=== PATIENT | male | born 1975 | race Caucasian/White ===

== ENCOUNTER 2018-05-26 10:26 | Inpatient (IN) | payer OTHER ==
[2018-05-26] VITALS (11 sets, daily range): BP systolic 96–147; BP diastolic 68–126
[~2018-05-26] VITALS: Ht 185.4 cm; Wt 159.7 kg
[2018-05-26 10:47] LABS: HEMATOCRIT 45.5 % (42.0-52.0); HEMOGLOBIN 14.7 gm/dL (14.0-18.0); MCH 28.9 pg (26.0-34.0); MCHC 32.3 g/dL (28.0-37.0); MCV 89.7 fL (80.0-100.0); MPV 9.4 fl. (7.2-11.1); NUCLEATED RBCS 0 /100WBC; PLATELET COUNT* 287 thou/uL (150-400); RBC 5.07 mil/uL (4.50-6.00); RDW-CV 13.8 % (10.5-14.5); WBC 12.8 thou/uL (4.0-11.0)
[2018-05-26 10:58] LABS: CALCIUM 7.9 mg/dL (8.5-10.1); CREATININE 1.3 mg/dL (0.6-1.3); POTASSIUM 4.4 mmol/L (3.5-5.1)
[2018-05-26 11:08] LABS: APTT 26.4 Seconds (25.0-31.3); INR 1.3; PROTIME 13.3 Seconds (9.20-11.50)
[2018-05-26 11:16] LABS: ALBUMIN 2.9 g/dL (3.4-5.0); CK-MB MASS 3.6 ng/mL (<0.5-3.6); MAGNESIUM 2.3 mg/dL (1.8-2.4); TOTAL BILIRUBIN 2.3 mg/dL (<0.1-1.0); TOTAL PROTEIN 6.5 g/dL (6.4-8.2)
[2018-05-26 11:17] LABS: TROPONIN-I LEVEL 1.4 ng/mL (<0.06)
[2018-05-26 11:20] LABS: ABSOLUTE LYMPHOCYTES 1.7 thou/uL (0.8-5.3); ABSOLUTE MONOCYTES 0.4 thou/uL (0.0-1.2); ABSOLUTE NEUTROPHILS 10.8 thou/uL (1.6-8.1); PLATELET ESTIMATE ADEQUATE
--- NOTE | 2018-05-26 11:41 | NUR ---
PT BECAME DIAPHORETIC, HYPOTENSIVE AT 60/37 AFTER SECOND BOLUS OF CARDIZEM PROVIDER NOTIFIED, LITER OF FLUID HUNG WITH PRESSURE BAG. PT LYING FLAT WITH FLUIDS INFUSING
--- NOTE | 2018-05-26 14:03 | NUR ---
RECEIVED PT FROM ER NURSE AT 1300.ASSESSMENT CHARTED. AFEBRILE. AFIB ON MONITOR. PT DENIES CHEST PAIN. MEDS GIVEN. WILL CONTINUE TO MONITOR.
--- NOTE | 2018-05-26 18:01 | EKG ---
[place] [address] ELECTROCARDIOGRAM REPORT Name: JIMI VAZQUEZ Room: [address] IN .R.#: [id number] Admission: 05/26/18 Attend Phys: Yvonne Dinh MD Discharge: Date of : 71 Report #: [id number] THIS REPORT FOR: //name// [facility] ED Test Date: 2018-05-26 Test Time: 10:29:17 Pat Name: JIMI VAZQUEZ Department: Room: [facility] Gender: M Orthotist: : 1975 Requested By: Zen Boothe Order Number: [id number] MD: Wero Ortiz Measurements Intervals [place] Rate: 199 P: IA: QRS: 236 QRSD: 101 T: 88 QT: 262 QTc: 477 Interpretive Statements Atrial fibrillation with rapid V-rate Markedly posterior QRS axis Borderline low voltage, extremity leads septal infarct, old Nonspecific T abnormalities, lateral leads No previous ECG available for comparison Electronically Signed On 05-26-2018 18:01:07 CDT by Wero Ortiz [email or web address] <ELECTRONICALLY SIGNED> By: Wero Ortiz MD, [facility] 05/26/18 1801 1029 1029 Wero Ortiz MD, [facility] /EPI
[2018-05-27] VITALS (33 sets, daily range): BP systolic 87–164; BP diastolic 46–146
--- NOTE | 2018-05-27 00:39 | NUR ---
PT REPORTED HAVING NAUSEA AT 2230. DR WILKINS NOTIFIED, RECIEVED ORDER FOR PRN ZOFRAN. PT REQUESTED ANXIETY MEDICINE. RECIEVED ORDER FOR ATIVAN 1 MG IV. PT SLEEPING SOUNDLY AT 0030. PT HAVING APNIC EPISODES WITH O2 SATS 70-90%. PT PLACED ON 50% VENTI MASK WITH NO IMPROVEMENT. DR WILKINS ORDERED CPAP TO KEEP SAT > 94%. RT IN ROOM AT THIS TIME PLACING CPAP ON PT.
[2018-05-27 04:51] LABS: SGOT 114 U/L (15-37); SGPT 169 U/L (30-65)
--- NOTE | 2018-05-27 06:13 | NUR ---
PT IN AFIB THROUGHOUT SHIFT. PT CONTINUED ON CARDIZEM DRIP, STARTED XARELTO AND BETAPACE. HEART RATE CONTROLLED THIS AM. PT UNABLE TO MAINTAIN OS SAT > 90% WITHOUT USE OF BIPAP. PT STARTED WITH NASAL CANULA THEN PUT ON VENTI MASK AFTER GOING TO SLEEP. PT CONTINUED TO EXTREME EPISODES OF APNEA WITH O2 SATS 60-70%. PT THEN PLACED ON CPAP AT 10 CM. REPIRATORY THERAPIST ADVANCED PT TO BIPAP. O2 SATS > 90% WHILE PT ON BIPAP.
[2018-05-27 09:54] LABS: CALCIUM 7.7 mg/dL (8.5-10.1); CREATININE 1.2 mg/dL (0.6-1.3); MAGNESIUM 2.2 mg/dL (1.8-2.4); POTASSIUM 4.8 mmol/L (3.5-5.1)
--- NOTE | 2018-05-27 13:04 | EKG ---
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: : 1975 Requested By: Juan Hollins Order Number: [id number] [place] MD: Juan Hollins Measurements Intervals [place] Rate: 100 P: CT: QRS: 206 QRSD: 110 T: 174 QT: 357 QTc: 461 Interpretive Statements Atrial fibrillation Right axis deviation Low voltage, extremity leads Abnormal R-wave progression, late transition Abnormal T, consider ischemia, lateral leads Baseline wander in lead(s) II,III,aVR,aVF,V2,V3,V4,V6 Compared to ECG 05/26/2018 10:29:17 Right-axis deviation now present Possible ischemia now present Posterior QRS axis no longer present Myocardial infarct finding no longer present T-wave abnormality still present Electronically Signed On 05-27-2018 13:04:23 CDT by Juan Hollins [email or web address] <ELECTRONICALLY SIGNED> By: Juan Hollins MD, [facility] 05/27/18 1304 1245 1245 Juan Hollins MD, [facility] /EPI
--- NOTE | 2018-05-27 13:04 | EKG ---
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: : 1975 Requested By: Wero Ortiz Order Number: [id number] [place] MD: Juan Hollins Measurements Intervals [place] Rate: 104 P: [place]: QRS: 225 QRSD: 112 T: 171 QT: 386 QTc: 508 Interpretive Statements Atrial fibrillation Borderline intraventricular conduction delay Borderline low voltage, extremity leads Abnormal R-wave progression, late transition Abnormal T, consider ischemia, lateral leads Prolonged QT interval Compared to ECG 05/26/2018 10:29:17 Possible ischemia now present Prolonged QT interval now present Posterior QRS axis no longer present Myocardial infarct finding no longer present T-wave abnormality still present Electronically Signed On 05-27-2018 13:03:59 CDT by Juan Hollins [email or web address] <ELECTRONICALLY SIGNED> By: Juan Hollins MD, [facility] 05/27/18 1303 0753 0753 Juan Hollins MD, [facility] /EPI
--- NOTE | 2018-05-27 15:30 | NUR ---
PT SLEEPING SOUNDLY. SPOKE BRIEFLY WITH MOTHER AT BEDSIDE. SHE SAID SHE DOESN'T KNOW IF PT HAS A PCP OR NOT, SHE SAID THE DR HE USED TO SEE ISN'T HERE ANYMORE AND SHE DOESN'T KNOW IF HE HAS A NEW DR OR NOT. CASE MGT WILL ASSESS AT LATER TIME.
--- NOTE | 2018-05-27 17:17 | TEE ---
[place] [address] TRANSESOPHAGEAL ECHOCARDIOGRAM Name: JIMI VAZQUEZ Room: [address] IN [facility]#: [id number] Admission: 05/26/18 Attend Phys: Yvonne Dinh, Discharge: Date of : 71 Date of Service: 05/27/18 1717 Report #: [id number] THIS REPORT FOR: //name// APPROVED REPORT Study performed: 05/27/2018 10:58:27 EXAM: Transesophageal Echocardiogram Patient Location: In-Patient Room #: [facility] Status: routine BSA: 2.76 HR: 109 bpm BP: 104/43 mmHg Rhythm: Atrial Fibrillation Other Information Study Quality: Good Indications Atrial Fibrillation Echo Enhancing Agent Indication: Rule out Shunt Agent(s) / Amount(s) Used: Agitated Saline 10 cc Procedure After obtaining informed consent, patient underwent transesophageal echo in the [employer]. Type of Sedation : General Anesthesia Sedation was administered by Anesthesiologist. Sedation start time: 1110 Case end Time: 1125 Sedation was achieved intravenously with: Versed (1) Propofol (120) Transesophageal probe was inserted and advanced into esophagus without difficulty by Juan Hollins MD, FACC. Echo enhancement indication: R/O Septal defect. Echo enhancement agent administered: Agitated Saline The ADY was performed without complications. Synchronized Cardioversion acheived with 250 Joules after 1 attempt(s). Rhythm following Synchronized Cardioversion: Normal Sinus Rhythm Throughout the procedure, the blood pressure, pulse oximetry, cardiac rhythm, and rate were monitored. The patient tolerated the procedure without adverse [place] [address] TRANSESOPHAGEAL ECHOCARDIOGRAM Name: GEORGEJIMI W Room: [address] IN [facility]#: [id number] Admission: 05/26/18 Attend Phys: Yvonne Dinh, Discharge: Date of : 71 Date of Service: 05/27/18 1717 Report #: [id number] from conscious sedation was uneventful and vital signs were stable. Left Ventricle Left ventricle is dilated. There is global hypokinesis of the left ventricle. There is normal left ventricular wall thickness. Left ventricular systolic function is severely decreased. No left ventricle thrombus noted on this study. LVEF is 20%.Global hypokinesis. Right Ventricle Right ventricle is dilated. The right ventricular systolic function is normal. Atria No thrombus is visualized in the left atrium or appendage. Left atrium is dilated. Interatrial septum is intact without evidence of ASD or PFO. Right atrium is dilated. Aortic Valve The aortic valve is normal in structure. No aortic regurgitation is present. There is no aortic valvular stenosis. Mitral Valve The mitral valve is normal in structure. Mild mitral regurgitation. No evidence of mitral valve stenosis. Tricuspid Valve The tricuspid valve is normal in structure. Mild tricuspid regurgitation. Pulmonic Valve The pulmonary valve is normal in structure. There is no pulmonic valvular regurgitation. Great Vessels The aortic root is normal in size. Pericardium There is no pericardial effusion. <Conclusion> LVEF is 20%.Global hypokinesis. Left ventricle is dilated. Right ventricle is dilated. Right atrium [place] [address] TRANSESOPHAGEAL ECHOCARDIOGRAM Name: JIMI VAZQUEZ Room: [address] IN [facility].#: [id number] Admission: 05/26/18 Attend Phys: Yvonne Dinh, Discharge: Date of : 71 Date of Service: 05/27/181716 Report #: [id number] No thrombus is visualized in the left atrium or appendage. Left atrium is dilated. Interatrial septum is intact without evidence of ASD or PFO. No aortic regurgitation is present. There is no aortic valvular stenosis. Mild mitral regurgitation. <ELECTRONICALLY SIGNED> By: Juan Hollins MD, [facility] 05/27/181716 16 16 Juan Hollins MD, FACC /INF
--- NOTE | 2018-05-27 18:20 | NUR ---
PT ASSESSMENT CHARTED. VSS THROUGHOUT THE DAY. PT LEFT FOR ADY/CARDIOVERSION AT 1035 IN CONTROLLED AFIB. PT BACK TO ROOM AT 1220 IN NSR. PT BACK INTO AFIB WITH CONTROLLED RATE AT APPROX 1226. EKG OBTAINED AND DR. JOHNSON WAS NOTIFIED. CARDIZEM DRIP RESTARTED AND AM MEDS GIVEN. PT COMPLAINED OF ON AGAIN OFF AGAIN ANXIETY. NEW ORDERS RECEIVED FOR PRN ATIVAN.
[2018-05-28] VITALS (8 sets, daily range): BP systolic 91–140; BP diastolic 62–94
--- NOTE | 2018-05-28 03:49 | NUR ---
PT TO BE TRANSFERED TO TELEMETRY FLOOR AT THIS TIME. REPORT GIVEN TO MJ GONZALEZ.
[2018-05-28 05:11] LABS: HEMATOCRIT 42.4 % (42.0-52.0); HEMOGLOBIN 13.5 gm/dL (14.0-18.0); MCH 29.4 pg (26.0-34.0); MCHC 31.9 g/dL (28.0-37.0); MCV 92.2 fL (80.0-100.0); MPV 10.1 fl. (7.2-11.1); RBC 4.6 mil/uL (4.50-6.00); RDW-CV 14.2 % (10.5-14.5); WBC 10.3 thou/uL (4.0-11.0)
[2018-05-28 05:46] LABS: ALBUMIN 2.6 g/dL (3.4-5.0); CALCIUM 7.6 mg/dL (8.5-10.1); CREATININE 1.2 mg/dL (0.6-1.3); POTASSIUM 5.3 mmol/L (3.5-5.1); TOTAL BILIRUBIN 1.7 mg/dL (<0.1-1.0); TOTAL PROTEIN 5.3 g/dL (6.4-8.2)
--- NOTE | 2018-05-28 06:53 | NUR ---
PT TRANSFERRED FROM ICU BED 002 TO ROOM 219 DURING THIS SHIFT; VSS, A+OX4, BIPAP, CARDIZEM GTT RUNNING. PT IS ABLE TO COMMUNICATE HIS NEEDS TO STAFF EFFECTIVELY. CURRENT PAIN MEDICATION REGIMEN HAS BEEN ADEQUATE FOR CONTROLLING HIS PAIN UP TO THIS TIME. POSSIBLE DISCHARGE IN A DAY OR TWO.
[2018-05-28 10:09] LABS: HEPATITIS B SURFACE AG Negative (Negative)
--- NOTE | 2018-05-28 11:23 | NUR ---
Pt is A&O. Resides at home alone. Independent with ADLs, continues to work FT outside of the home. No DME. No hx of HH or SNF. Consult received regarding Pt needing a bipap at dc. Discussed with and Dhara from [facility]. Pt will either need a sleep study or a chronic respiratory dx. SHANTEL contacted Dhara again regarding renting a bipap until a sleep study can be completed, awaiting decision, Pt in agreement with renting if it is an option. SHANTEL faxed referral info to [facility]. Pt established care at [facility] on 05/26 with Cullen Vargas NP and plans to continue receiving his care there after dc. Following.
--- NOTE | 2018-05-28 13:08 | NUR ---
ASSUMED CARE OF PATIENT THIS AM AT 0730. PATIENT IS ALERT AND ORIENTED X 4. HE DENIES PAIN THIS AM. PATIENT HAS BEEN UP TO THE BATHROOM WITH STANDBY ASSIST. DR IN TO ROUND AND ORDERS WRITTEN. IV CARDIZEM WAS INFUSING THIS AM AT 10 ML /HR TELE SHOWS AFIB WITH A RATE OF 70S TO 80S. PATIENT TO START PO CARDIZEM THIS AFTERNOON. PATIENT EDUCATED ON FLUID RESTRICTIONS AND MONITORING I AND O.
[2018-05-29] VITALS: BP 90/55
[2018-05-29 02:34] LABS: BE 0.6 mmol/L (-2 to +3); HCO3 24.1 mmol/L (22.0-26.0); PCO2 35.5 mmHg (35.0-45.0); PO2 92.1 mmHg (75.0-100.0)
[2018-05-29 04:00] VITALS: BP 88/58
--- NOTE | 2018-05-29 04:23 | NUR ---
END SHIFT: PT RESTED WELL. NO COMPLAINTS. NO PAIN. CONT O2 SAT MONITOR ON OVER SHIFT. PT REQUIRED O2 WITH SATS IN LOW 80'S. ABG'S DRAWN PER ORDERS. PT HAS BEEN A BIT HYPOTENSIVE OVER SHIFT. AFIB RATE CONTROLLED. PT SHOWERED LAST NIGHT WITHOUT DIFFICULTY. AWAITING THORACENTESIS TODAY. ASSESSMENT UNCHANGED. CALL LIGHT IN REACH. PERFORMED HOURLY ROUNDING. WILL CONT TO MONITOR.
[2018-05-29 04:50] LABS: HEMATOCRIT 39.9 % (42.0-52.0); MCH 29.5 pg (26.0-34.0); MCHC 32.5 g/dL (28.0-37.0); MCV 90.9 fL (80.0-100.0); MPV 9.7 fl. (7.2-11.1); RBC 4.4 mil/uL (4.50-6.00); RDW-CV 14.2 % (10.5-14.5); WBC 9.6 thou/uL (4.0-11.0)
[2018-05-29 05:12] LABS: CALCIUM 7.8 mg/dL (8.5-10.1)
[2018-05-29 05:17] LABS: POTASSIUM 3.8 mmol/L (3.5-5.1)
[2018-05-29 08:15] VITALS: BP 95/75
--- NOTE | 2018-05-29 08:15 | NUR ---
ASSUMED PT. CARE AND RECEIVED REPORT AT 0730. PT A/OX4, BP 95/75 ALL OTHER VSS. MONITOR ON TRACING AFIB. PT. DENIES CURRENT PAIN/SOB. ON RA @ 93%. FULL ASSESSMENT COMPLETED, REFER TO CHARTING. PT. NPO FOR THORACENTISIS TODAY. PT. REQUESTING STOOL SOFTNER, WILL ASK DR. STEPHENSON WHEN ON UNIT. PT. UP TO CHAIR. CALL LIGHT IN REACH, WILL CONTINUE WITH PLAN OF CARE.
[2018-05-29 09:05] LABS: BE 2.3 mmol/L (-2 to +3); HCO3 24.9 mmol/L (22.0-26.0); PO2 75.9 mmHg (75.0-100.0); pH 7.496 (7.340-7.450)
--- NOTE | 2018-05-29 11:35 | CON ---
[address] [address] CONSULTATION Name: GEORGEJIMI W Room: [address] IN M.R.#: [id number] Admission: 05/26/18 Attend Phys: Yvonne Dinh MD Discharge: Date of : 71 Report #: [id number] THIS REPORT FOR: //name// CC: [facility] physician/PCP Yvonne Dinh REFERRING PHYSICIAN: Yvonne Dinh MD CHIEF COMPLAINT: Dyspnea. HISTORY OF PRESENT ILLNESS: The patient is a 43-year-old male who is a lifelong nonsmoker with no history of respiratory disorder. The patient presented to the hospital after being seen by his new primary physician. He had saturations that were low and his heart rate was extremely high on an oximetry study according to the patient. The patient states he has been having episodes of what he thinks may be panic attacks. In addition, he has had poor quality sleep. He describes symptoms are really associated more with sleep apnea. He has had somnolence during the day, poor sleeping habits at night. States that he falls asleep and wakes up. He has not been able to get a good 4-8 hour sleep night. According to the patient, he has been extremely active. 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 He has not had any nausea or vomiting. He has had swelling of his lower extremities. He denies hematuria or dysuria. He has not had any bowel conditions. He has had a minimal amount of shortness of breath here more recently than in the past. The patient presents to the hospital in atrial fibrillation, congestive failure. He did undergo direct current cardioversion for his atrial fibrillation. He has been seen by the Cardiology Service. PAST MEDICAL HISTORY: Significant for atrial fibrillation, anxiety disorder. SOCIAL HISTORY: He is . He lives by himself. He is employed. He is a lifelong nonsmoker. No history of drug abuse. ALLERGIES: None known. MEDICATIONS: Diltiazem, Lasix, BiPAP therapy, Xarelto, lorazepam p.r.n. FAMILY HISTORY: Negative for any sort of heart or cardiac disease. During the course of this hospitalization, reviewing records, he did undergo cardioversion as outlined above. He has [place] [address] CONSULTATION Name: GEORGEJIMI W Room: [address]#: [id number] Admission: 05/26/18 Attend Phys: Yvonne Dinh MD Discharge: Date of : 71 Report #: [id number] compromise of ventricular function with an EF in the 20% range. The left ventricle was dilated. There is global hypokinesis and the left ventricular ejection fraction was 20%. PHYSICAL EXAMINATION: VITAL SIGNS: Blood pressure 140/62, respiratory rate 18, nonlabored; pulse rate 69 and irregular, temperature 98 degrees. Weight 352 pounds. GENERAL APPEARANCE: Awake, alert, oriented. HEAD: Atraumatic. EYES: Pupils are round, equal, reactive. ORAL CAVITY: Moist. No lesions. Good dentition. NECK: No adenopathy. CHEST: Reveals diminished breath sounds on the right compared to the left. Dullness to percussion as well on the right. CARDIOVASCULAR: Irregular rhythm, distant heart tones. ABDOMEN: Obese. EXTREMITIES: With 2+ edema bilaterally, no calf tenderness. SKIN: Warm and dry without rash. LYMPHATICS: Negative. NEUROLOGIC: Moves all 4 extremities. Strength equal bilaterally. DIAGNOSTIC DATA: Chest x-ray reveals mild effusion and right basilar atelectatic changes. A CTA of the chest performed was negative for any pulmonary emboli. There was a moderate sized right pleural effusion. Venous Dopplers of the lower extremities was negative for thromboembolic disease. Ultrasound of the abdomen revealed a right effusion and the study was unremarkable. LABORATORY DATA: TSH is 2.6, free T4 was 1.56. ProBNP 11,355. Today, his electrolytes, sodium 143, potassium 5.3, chloride 108, CO2 of 30, BUN of 31, creatinine 1.2, EGFR is 65. Hemoglobin and hematocrit are 13.5 and 42.4, white count 10,300. ASSESSMENT: 1. Acute respiratory insufficiency. 2. Sleep apnea. 3. Congestive heart failure with compromised ejection fraction as outlined above. 4. Obesity. 5. History of anxiety. 6. Right pleural effusion. RECOMMENDATION: The patient will need a sleep study as an outpatient. In the meantime, continue with BiPAP therapy at night here and with naps. We will ask case management to assist in achieving a noninvasive positive [address] [place] [address] CONSULTATION Name: JIMI VAZQUEZ Room: [address] IN ..#: [id number] Admission: 05/26/18 Attend Phys: Yvonne Dinh MD Discharge: Date of : 71 Report #: [id number] pressure device to be utilized at home. Arterial blood gases will be obtained. Continue with diuresis. We will go ahead and proceed with orders for an ultrasound-guided thoracentesis. <ELECTRONICALLY SIGNED> By: Miki Brunner MD 05/29/18 1135 1327 [id number] Brunner MD /nt
--- NOTE | 2018-05-29 11:36 | NUR ---
Anticipate dc tomorrow. Dhara Zarate to provide loaner bipap. CM to work on scheduling outpt sleep study today for as soon as possible after dc. Dr Brunner wrote sleep study order. Following.
[2018-05-29 12:04] VITALS: BP 105/62
[2018-05-29 13:03] VITALS: BP 105/62
--- NOTE | 2018-05-29 13:05 | NUR ---
Sleep study scheduled for 06/11/[address] [facility]. Pt will need to check in at 8pm through the Emergency Room. Pt is to not have any alcohol or caffiene the day of the sleep study after 3pm. Updated dated DC summary with info on sleep study. Updated Dhara at [employer], regarding delivering the loaner. Dhara to fax prescription, CM to have it signed by pullata and fax back.
[2018-05-29 16:00] VITALS: BP 108/50
--- NOTE | 2018-05-29 19:33 | NUR ---
PT. STABLE THROUGH OUT SHIFT. PROGRESING TOWARDS GOALS TODAY, AMBULATED HALLS AND UP TO CHAIR MOST OF THE DAY. C/O OF SLIGHT PAIN POST THORACENTISIS, CONTROLLED WELL WITH TYLENOL. ANTICIPATE DC TOMORROW. PT. HAS REMAINED ON RA THIS SHIFT, WITH NO SOA. HOURLY ROUNDING COMPLETED THROUGH OUT THE DAY FOR PT. SAFETY.
--- NOTE | 2018-05-29 23:15 | NUR ---
ASSUMED CARE OF PT AT 1900. PT IS ALERT AND ORIENTED. VSS. PEROCHOA. PT IS UP AD [place]. PT IS IN A FIB ON THE TELEMETRY. PT IS RESTING COMFORTABLY IN BED. RESPIRATIONS ARE EVEN AND NONLABORED. WILL CONTINUE TO MONITOR PT.
[2018-05-30] VITALS: BP 94/54
[2018-05-30 04:00] VITALS: BP 101/58
[2018-05-30 07:31] LABS: HEMATOCRIT 41.9 % (42.0-52.0); HEMOGLOBIN 13.8 gm/dL (14.0-18.0); MCH 29.6 pg (26.0-34.0); MCHC 33.1 g/dL (28.0-37.0); MCV 89.5 fL (80.0-100.0); MPV 9.1 fl. (7.2-11.1); RBC 4.68 mil/uL (4.50-6.00); RDW-CV 14.3 % (10.5-14.5); WBC 10.4 thou/uL (4.0-11.0)
[2018-05-30 07:43] LABS: ALBUMIN 2.5 g/dL (3.4-5.0); CALCIUM 7.6 mg/dL (8.5-10.1); POTASSIUM 3.9 mmol/L (3.5-5.1); TOTAL BILIRUBIN 1.9 mg/dL (<0.1-1.0); TOTAL PROTEIN 5.9 g/dL (6.4-8.2)
--- NOTE | 2018-05-30 08:12 | CON ---
[address] [address] CONSULTATION Name: JIMI VAZQUEZ Room: [address] IN .R.#: [id number] Admission: 05/26/18 Attend Phys: Yvonne Dinh MD Discharge: Date of : 71 Report #: [id number] THIS REPORT FOR: //name// CC: [facility] physician/PCP Yvonne Dinh DATE OF SERVICE: 05/26/2018 HISTORY OF PRESENT ILLNESS: The patient a 43-year-old single white male who was admitted after he was noted to be in atrial fibrillation. The history is obtained from the patient. He has never been here to [place] before. He has a long history of anxiety. He has had no previous cardiac evaluation. He is not very active at this time. He is also morbidly obese, standing 6 feet 1 and weighing 255 pounds. He has not seen a physician for years. Recently, he has felt anxious. He went to see a nurse practitioner today and was noted to be in atrial fibrillation. He was sent to the Emergency Room and admitted. He does have occasional chest discomfort. He does get short of breath when he exerts himself. He has noticed some lower extremity edema. He denied any palpitations, syncope. He has had no bleeding problems. PAST MEDICAL HISTORY: Significant for hernia repair, high cholesterol. CURRENT MEDICATIONS: None. ALLERGIES: He has no known drug allergies. FAMILY HISTORY: Negative for heart disease. 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 He lives in [place] by himself. He does not use alcohol. He is not a smoker. Denies illicit drugs. REVIEW OF SYSTEMS: He has had no history of stroke. He does snore at night. No history of peptic ulcer disease, liver disease, kidney disease, cancer, psychiatric illness, chronic skin condition. PHYSICAL EXAMINATION: GENERAL: Revealed a large middle-aged male, lying in bed, appeared in no acute distress. VITAL SIGNS: He had blood pressure of 110/ , pulse is 120, respirations nonlabored. HEENT: He is anicteric. Conjunctivae pink. Mucous members moist. NECK: Veins were difficult to assess due to obesity. CHEST: Clear to auscultation. CARDIOVASCULAR: Irregular tachycardia. ABDOMEN: [place] [address] CONSULTATION Name: GEORGEJIMI W Room: [address]#: [id number] Admission: 05/26/18 Attend Phys: Yvonne Dinh MD Discharge: Date of : 71 Report #: [id number] EXTREMITIES: Had pitting edema. SKIN: Cool and dry. NEUROLOGIC: Nonfocal. LYMPH: No adenopathy. MUSCULOSKELETAL: No joint effusion. PSYCHIATRIC: Mood is appropriate. DIAGNOSTIC DATA: His ECG showed atrial fibrillation with a rapid ventricular response rate, rightward axis, nonspecific ST-segment changes, poor R-wave progression. Workup in the Emergency Room today, he had portable chest x-ray that showed small right effusion, cardiomegaly, no pulmonary edema. There was atelectasis. LABORATORY DATA: Sodium 140, creatinine 1.3, alkaline phosphate 128, SGPT 197, SGOT 121, bilirubin 2.3. Troponin 1.4. BNP 11,355. White blood cell count 12.8, hemoglobin 14.7. IMPRESSION AND RECOMMENDATIONS: 1. Atrial fibrillation, onset unclear. The patient is asymptomatic. Recommend diltiazem for rate control. I would recommend starting sotalol. If the patient fails to convert, he might require cardioversion. 2. Obesity. 3. Snoring at night. I would rule out sleep apnea. 4. Elevated liver function studies. 5. Elevated troponin. No history of angina. I would not recommend stress testing nor cardiac catheterization at this time. 6. History of hyperlipidemia. 7. Anxiety disorder. <ELECTRONICALLY SIGNED> By: Wero Ortiz MD, FACC 05/30/18 0812 1459 1926Wero Ortiz MD, FACC /nt
[2018-05-30 08:45] VITALS: BP 105/60
--- NOTE | 2018-05-30 08:52 | NUR ---
ASSUMED PT. CARE AND RECEIVED REPORT AT 0730. PT A/OX4, VSS, MONITOR ON TRACING AFIB. PT. DENIES CURRENT PAIN/SOB. ON RA @ 97%. EXHIBITS 2+ EDEMA TO LE/FEET. FULL ASSESSMENT COMPLETED, REFER TO CHARTING. PT. STATES HE IS READY TO DC TODAY, FAMILY WILL BE WITH HIM THROUGH THE WEEKEND AT HOME. CALL LIGHT IN REACH, WILL CONTINUE WITH PLAN OF CARE.
[2018-05-30 11:36] VITALS: BP 105/62
[2018-05-30 11:56] VITALS: BP 93/59
[2018-05-30] MEDS ORDERED: LANOXIN 0.25M0.25 M1 PO (12:03)
[2018-05-30] MEDS ORDERED: XARELTO20 MG PO (12:03)
[2018-05-30] MEDS ORDERED: CARDIZEM CD240 MG PO (12:03)
[2018-05-30] MEDS ORDERED: SORINE 80 MG TA80 M1 PO (12:03)
[2018-05-30] MEDS ORDERED: LASIX 40 MG TAB40 M1 PO (12:03)
[2018-05-30] MEDS ORDERED: ATIVAN0.5 MG PO (12:03)
[2018-05-30] MEDS ORDERED: KLOR-CON M2020 MEQ PO (12:03)
[2018-05-30 13:08] LABS: BODY FLUID LDH 332 IU/L (()); BODY FLUID PROTEIN 2.1 g/dL (())
--- NOTE | 2018-05-30 14:14 | NUR ---
SPOKE TO PATIENT TO DISCUSS DISCHARGE PLANNING NEEDS, AND TO INFORM THAT UPON CHECKING THE CO-PAY AMOUNT FOR THE PATIENT'S XERALTO. [facility] PHARMACIST INFORMS THAT THE PATIENT MUST BRING UPDATED INSURANCE CARDS THERE IS NO CURRENT INFO ON FILE, AND WITHOUT UPDATED INSURANCE INFO THE COST OF THE XERALTO IS $515. THALIA CHAPIN ARRIVED AT THE HOSPIAL AND DELIVERED THE PATIENT'S BIPAP. PATIENT TO D/C HOME TODAY. CM WILL REMAIN AVAILABLE TO ASSIST AND FOLLOW NEEDED.
[2018-05-30 16:23] LABS: SOURCE PLEURAL
--- NOTE | 2018-05-30 16:27 | NUR ---
PT SITTING IN RECLINER, SUDDENLY CLOSED EYES AND LEANED TO RIGHT SIDE. PT. STATED HE SUDDENLY FELT LIGHT HEADED. VITAL SIGNS CONSISTANT WITH PREVIOUS REULTS BP 95/70, HEART RATE 110'S AFIB, BLOOD GLUCOSE 133. PT. CONTINUED TO FEEL THE SAME DURING ASSESSMENT AND THEN BECAME DIAPHORETIC. DENIES ALL PAIN. EKG OBTAINED WITH NO CHANGES NOTED. DR. STEPHENSON NOTIFIED OF CHANGE. ORDERS RECEIVED JUST TO MONITOR AND IF PT. SLEEPING MAKE SURE WEARING BIPAP. POSSIBILITY THAT ALL NEW CARDIAC MEDS ARE CATCHING UP TO HIM AND HE IS NOT TOLERATING LOWER BP. PT. WAS ASSISSTED BACK TO BED AND BIPAP PLACED, PT. AGREEABLE TO WEAR. DR. STEPHENSON CALLED BACK TO CHECK ON PT. APPROX. 30 MINUTES LATER. ORDER RECEIVED FOR ABG AND BMP AT THIS TIME. PT. CONTINUE TO BE SLEEPY, AND NOT QUITE HIMSELF. NO LONGER DIAPHORETIC, VSS. WILL CONTINUE TO MONITOR.
[2018-05-30 16:28] LABS: BE 3.3 mmol/L (-2 to +3); HCO3 26.7 mmol/L (22.0-26.0); PCO2 36.8 mmHg (35.0-45.0); pH 7.478 (7.340-7.450)
[2018-05-30 16:32] LABS: PO2 56.8 mmHg (75.0-100.0)
[2018-05-30 16:41] LABS: CALCIUM 7.9 mg/dL (8.5-10.1)
--- NOTE | 2018-05-30 17:08 | PATH ---
[address] [address] PATHOLOGY RPT PROCEDURE Name: JIMI VAZQUEZ Room: [address] IN [facility]#: [id number] Admission: 05/26/18 Date of : 71 Discharge: Report #: [id number] Path Case #: [id number] Note [facility] Accession Number: [id number] TESTS RESULT FLAG UNITS REF RANGE LAB Clinician Provided Cytology Information No. of containers..01 Other (Miscellaneous) Source: 01 R PLEURAL Clinician ICD10: 01 I48.91 DIAGNOSIS: 02 R PLEURAL NEGATIVE FOR MALIGNANT CELLS. REACTIVE MESOTHELIAL CELLS AND INFLAMMATION, PREDOMINANTLY CHRONIC. THIS INTERPRETATION INCLUDES EVALUATION OF A CELL BLOCK. Signed out by: 02 Bart Delacruz MD, Pathologist NPI- [id number] Performed by: Brittny Carlos, Refinery Operator [employer]per [employer] ([facility]) Gross description: 01 31ML, ORANGE, CLOUDY /LCS FLAG LEGEND: L-Low Normal,H-High Normal,LL-Alert Low,HH-Alert High <-Panic Low,>-Panic High,A-Abnormal,AA-Critical Abnormal Performed at: [address] [address] Selvin Espinoza MD, [address] [place] [address] [address] [facility], [place] [address] Bart Delacruz MD, Specimen Comment: A courtesy copy of this report has been sent to Specimen Comment: [phone]. Specimen Comment: Report sent to Performed at: [address] [address], [place], [place] [id number] MD Selvin Espinoza MD Phone: [phone]
--- NOTE | 2018-05-30 19:33 | NUR ---
ABG RESULTS WERE CALLED TO DR. JEFFERS, NO NEW ORDERS AT THIS TIME. FIO2 INCREASED TO 45% BY RT. PT. DOING BETTER THIS EVENING. PLACED ON NASAL CANNULA TO EAT DINNER AND VISIT WITH FAMILY. PT. AND FAMILY EDUCATED ON HEART FAILURE, AFIB, BIPAP. REPORT GIVEN TO NOC RN TO FOLLOW. HOURLY ROUNDING COMPLETED THROUGH OUT THE DAY FOR PT. SAFETY.
--- NOTE | 2018-05-30 23:25 | NUR ---
ASSUMED CARE OF PT AT 1900. PT IS ALERT AND ORIENTED. VSS. PERRLA. NO COMPLAINTS OF PAIN. NO COMPLAINTS OF WEAKNESS OR DIZZINESS. BIPAP PLACED ON PT AT 0. PT IS A FIB ON THE TELEMETRY. PT IS RESTING COMFORTABLY IN BED. RESPIRATIONS ARE EVEN AND NONLABORED. WILL CONTINUE TO MONITOR PT.
[2018-05-31] VITALS: BP 125/68
[2018-05-31 04:30] VITALS: BP 117/73
[2018-05-31 08:00] VITALS: BP 129/82
[2018-05-31 12:00] VITALS: BP 126/66
--- NOTE | 2018-05-31 12:47 | EKG ---
[place] [address] ELECTROCARDIOGRAM REPORT Name: JIMI VAZQUEZ Room: [address] ADM IN M.R.#: [id number] Admission: 05/26/18 Attend Phys: Yvonne Dinh MD Discharge: Date of : 71 Report #: [id number] THIS REPORT FOR: //name// [facility] Test Date: 2018-05-30 Test Time: 15:03:08 Pat Name: JIMI VAZQUEZ Department: Room: [address] Gender: M Cabin Agent: : 1975 Requested By: Yvonne Dinh Order Number: [id number] Reading MD: Juan Hollins Measurements Intervals [place] Rate: 91 P: [place]: QRS: 211 QRSD: 113 T: 159 QT: 354 QTc: 436 Interpretive Statements Atrial fibrillation Borderline intraventricular conduction delay Borderline low voltage, extremity leads Abnormal R-wave progression, late transition Abnormal T, consider ischemia, lateral leads Baseline wander in lead(s) V2 Compared to ECG 05/27/2018 12:45:36 Right-axis deviation no longer present T-wave abnormality still present Possible ischemia still present Electronically Signed On 05-31-2018 12:46:51 CDT by Juan Hollins [email or web address] <ELECTRONICALLY SIGNED> By: Juan Hollins MD, [facility] 05/31/18 1246 1503 1503 Juan Hollins MD, [facility] /EPI
--- NOTE | 2018-05-31 13:50 | NUR ---
ASSUMED CARE OF PATIENT THIS AM AT 0730. PATIENT IS ALERT AND ORIENTED X 4. HE C/O A BAD HEADACHE THIS AM. DR NOTIFIED AND ORDERS GIVEN FOR PAIN MEDICATION AND SINUS MEDICATION. PATIENT IS UP IN THE ROOM INDEPENDENTLY. NO C/O DIZZINESS. TELE SHOWS CONTINUED A FIB WITH BBB. WILL CONTINUE TO MONITOR.
[2018-05-31 15:30] VITALS: BP 121/71
[2018-05-31 20:58] VITALS: BP 101/63
[2018-06-01 00:38] VITALS: BP 118/84
[2018-06-01 04:21] VITALS: BP 113/65
--- NOTE | 2018-06-01 05:02 | NUR ---
PT IS ABLE TO COMMUNICATE HIS NEEDS TO STAFF EFFECTIVELY. CURRENT PAIN MEDICATION REGIMEN HAS BEEN ADEQUATE FOR CONTROLLING HIS PAIN UP TO THIS TIME. PT WEARING BIPAP FOR THE MAJORITY OF THE TIME HE IS ASLEEP; NEEDS TO BE ENCOURAGED AND REMINDED TO DO SO, HOWEVER. POSSIBLE DISCHARGE LATER TODAY.
[2018-06-01] MEDS ORDERED: DILTIAZEM 24HR180 M1 PO (07:46)
[2018-06-01 08:00] VITALS: BP 106/63
--- NOTE | 2018-06-01 10:37 | NUR ---
ASSUMED CARE OF PATIENT THIS AM AT 0730. PATIENT IS ALERT AND ORIENTED X 4. HE C/O CONTINUED HEADACHE THIS AM. PATIENT CONTINUES AFIB ON THE MONITOR. HEART RATE IS 80S TO 90S. PATIENT IS UP IN THE ROOM. HE DENIES SOA. HE CONTINUES TO HAVE 2 TO 3+ ANKLE AND FOOT EDEMA. PATIENT MEDICATED FOR C/O PAIN X 1. DR STEPHENSON IN TO ROUND THIS AM. PLANS DISCHARGE TODAY.
[2018-06-01 12:01] VITALS: BP 92/73
--- NOTE | 2018-06-14 12:08 | CARD ---
[address] [address] CARDIAC CATH REPORT Name: JIMI VAZQUEZ Room: [address] IN .R.#: [id number] Admission: 05/26/18 Attend Phys: Yvonne Dinh MD Discharge: 06/01/18 Date of : 71 Report #: [id number] THIS REPORT FOR: //name// CC: [facility] physician/PCP Yvonne Dinh DATE OF SERVICE: 05/27/2018 INDICATION: Atrial fibrillation, congestive heart failure. PROCEDURE: This is a transesophageal echocardiogram with DC cardioversion. CONSENT: The risks and benefits of the procedure described to the patient in lay terms. The patient elects to proceed. HISTORY: The patient is a morbidly obese male who presented with respiratory failure and atrial fibrillation with heart rates difficult to manage, even despite aggressive AV daphne acting agents. The patient elects to proceed. We consulted Anesthesia for conscious sedation for this higher risk patient. DESCRIPTION OF PROCEDURE: Please see Anesthesia record for hemodynamic and medication administration. Please see transesophageal echocardiogram for final report. In short, summary, the patient had a significantly reduced LV systolic dysfunction in a global manner with an ejection fraction of 20%. However, there was no intracardiac thrombus and the left atrial appendage was free of thrombus, although there was some spontaneous echo contrast in the left atrial appendage only. The patient was successfully cardioverted while still sedated with 250 joules, biphasic from atrial fibrillation heart rate 120 to sinus rhythm heart rate 75. Post-procedurally, the patient did require an oral airway and monitoring closely by our Anesthesia colleagues, as he does have evidence of sleep apnea. IMPRESSION: 1. Atrial fibrillation. 2. Status post successful ADY-guided direct current cardioversion. <ELECTRONICALLY SIGNED> By: Juan Hollins MD, FACC 06/14/18 1208 1140 1309Juan Hollins MD, FACC /nt
== END 2018-06-01 17:15 | disposition home or self-care (01) | DRG 291 ==
LOC: M.ERS 10:26 → M.ICU 11:55 → M.TBA-ER 11:55 → M.ICU 13:05 → M.TBA 19:08 → M.ICU 19:08 → M.2W 05-28 04:00
PROVIDERS: Emergency Medicine; Internal Medicine Cardiovascular Disease; Internal Medicine Pulmonary Disease; ADMIT Internal Medicine
PROC: B24BZZ4 Ultrasonography of Heart with Aorta, Transesophageal (ICD-10-PCS; principal; 2018-05-27)
PROC: 5A2204Z Restoration of Cardiac Rhythm, Single (ICD-10-PCS; principal; 2018-05-27)
PROC: 5A09357 Assistance with Respiratory Ventilation, Less than 24 Consecutive Hours, Continuous Positive Airway Pressure (ICD-10-PCS; principal; 2018-05-27)
PROC: 5A09357 Assistance with Respiratory Ventilation, Less than 24 Consecutive Hours, Continuous Positive Airway Pressure (ICD-10-PCS; 2018-05-28)
PROC: 0W993ZZ Drainage of Right Pleural Cavity, Percutaneous Approach (ICD-10-PCS; 2018-05-29)
PROC: 5A09357 Assistance with Respiratory Ventilation, Less than 24 Consecutive Hours, Continuous Positive Airway Pressure (ICD-10-PCS; 2018-05-31)
DX: I50.23 Acute on chronic systolic (congestive) heart failure (principal); J96.20 Acute and chronic respiratory failure, unspecified whether with hypoxia or hypercapnia; I42.9 Cardiomyopathy, unspecified; Z68.42 Body mass index [BMI] 45.0-49.9, adult; J90 Pleural effusion, not elsewhere classified; I48.91 Unspecified atrial fibrillation; F41.9 Anxiety disorder, unspecified; E66.9 Obesity, unspecified; E78.5 Hyperlipidemia, unspecified; I95.9 Hypotension, unspecified; Z79.899 Other long term (current) drug therapy

== ENCOUNTER → 2018-06-11 | Outpatient (CLI) | payer OTHER ==
[~2018-06-11] MED LIST: ATIVAN0.5 MG PO; CARDIZEM CD240 MG PO; DILTIAZEM 24HR180 M1 PO; KLOR-CON M2020 MEQ PO; LANOXIN 0.25M0.25 M1 PO; LASIX 40 MG TAB40 M1 PO; SORINE 80 MG TA80 M1 PO; XARELTO20 MG PO
--- NOTE | 2018-06-13 07:28 | SLEEP ---
[address] [address] SLEEP STUDY REPORT Name: JIMI VAZQUEZ Room: [facility]#: [id number] Admission: 06/11/18 Attend Phys: Miki Brunner, Discharge: Date of : 71 Report #: [id number] THIS REPORT FOR: //name// CC: Miki Brunner MD [facility] physician/PCP This study has been reviewed in its entirety by a board certified sleep specialist DATE OF SERVICE: 06/11/2018 ATTENDING PHYSICIAN: Dr. Miki Brunner. The patient is 43 years old who weighs 315 pounds and is 73 inches tall with a BMI of 41. The patient's [place] score was 12. The patient underwent a split night study at [facility]. During the night of study, the patient spent 397 minutes in bed and slept for 315 minutes with a sleep efficiency of 79%. Sleep latency was 18.7 minutes with a REM latency of 32.5 minutes, which was short. Overall, sleep architecture showed normal stage I and stage II sleep, increased N3 sleep and normal REM sleep. During the initial diagnostic portion of the study, the patient slept for 138 minutes. During that time, there were no central, mixed or obstructive apneas. There were 22 hypopneas. The patient's apnea-hypopnea index was 9.6 per hour with a REM index of 30 per hour. The patient's supine index could not be assessed due to lack of supine sleep. EKG monitoring revealed atrial fibrillation. The patient's average heart rate was 65 beats per minute with a maximum of 101 beats per minute. PLMS were not observed. A nocturnal oximetry study revealed an average oxygen saturation of 92% with the lowest of 87%. 38 minutes were spent in oxygen saturation between 80-89%. The patient met the split night criteria for CPAP initiation, was started at 7 cm water and titrated up to 18 cm water. At the final pressure, the patient slept for 48.8 minutes. The patient had REM sleep, but no supine sleep. The patient's AHI was reduced to 4.2 per hour and oxygen saturation remained above 92%. IMPRESSION: 1. Mild sleep apnea-hypopnea syndrome with worsening during REM sleep. Total AHI 9.6 per hour with a REM AHI of 30 [place] [address] SLEEP STUDY REPORT Name: JIMI VAZQUEZ Room: [facility]#: [id number] Admission: 06/11/18 Attend Phys: Miki Brunner, Discharge: Date of : 71 Report #: [id number] 2. Nocturnal hypoxia secondary to obstructive sleep apnea, but resolved with CPAP. 3. Atrial fibrillation. 4. No clinically significant PLMS. RECOMMENDATIONS: 1. CPAP at 18 cm water completely eliminated the patient's sleep apnea and should be used on a nightly basis. 2. Follow up in 4-6 weeks to assess compliance with CPAP and to document clinical improvement. 3. Weight loss is strongly emphasized. 4. Caution regarding driving until symptoms of sleep apnea resolve with the use of CPAP. 5. Avoid CAR DUMPER depressants. <ELECTRONICALLY SIGNED> By: Jose Eduardo Borrero MD 06/13/18 0728 1722 [facility] Hillary Borrero MD /nt
== END ==
LOC: M.SLEEPLAB 19:47
DX: G47.33 Obstructive sleep apnea (adult) (pediatric) (principal); G47.34 Idiopathic sleep related nonobstructive alveolar hypoventilation; I48.91 Unspecified atrial fibrillation

== ENCOUNTER → 2018-10-02 | Outpatient (CLI) | payer OTHER | LOC: M.RAD 16:34 | DX: I50.22 Chronic systolic (congestive) heart failure (principal); J90 Pleural effusion, not elsewhere classified; R91.8 Other nonspecific abnormal finding of lung field ==

== ENCOUNTER → 2018-10-24 | Outpatient (CLI) | payer OTHER ==
[~2018-10-24] VITALS: Ht 185.4 cm; Wt 142.9 kg
[2018-10-24] VITALS (7 sets, daily range): BP systolic 107–130; BP diastolic 60–82
[~2018-10-24] MED LIST changes: +CARVEDILOL12.5 MG PO
[2018-10-24 08:23] LABS: HEMATOCRIT 45.3 % (42.0-52.0); HEMOGLOBIN 15.2 gm/dL (14.0-18.0); MCH 30.6 pg (26.0-34.0); MCHC 33.6 g/dL (28.0-37.0); MCV 91.2 fL (80.0-100.0); RBC 4.97 mil/uL (4.50-6.00); WBC 8.1 thou/uL (4.0-11.0)
[2018-10-24 08:29] LABS: ANION GAP 8 mmol/L (7-16); BUN 15 mg/dL (7-18); CALCIUM 9.6 mg/dL (8.5-10.1); CHLORIDE 107 mmol/L (98-107); CO2 29 mmol/L (21-32); CREATININE 1.1 mg/dL (0.6-1.3); GLUCOSE 120 mg/dL (70-99); SODIUM 144 mmol/L (136-145)
[2018-10-24 08:32] LABS: APTT 30.1 Seconds (25.0-31.3)
[2018-10-24 08:33] LABS: ALBUMIN 3.6 g/dL (3.4-5.0); ALKALINE PHOSPHATASE 92 U/L (46-116); CHOLESTEROL 288 mg/dL (<200); HDL CHOLESTEROL 35 mg/dL (>40); LDL CHOLESTEROL 218 mg/dL (<100); SGOT 14 U/L (15-37); SGPT 27 U/L (30-65); TC:HDL 8.2 Ratio (Not establshd); TOTAL BILIRUBIN 0.7 mg/dL (<0.1-1.0); TOTAL PROTEIN 7.4 g/dL (6.4-8.2); TRIGLYCERIDE 175 mg/dL (<150); VLDL 35 mg/dL (<40)
[2018-10-24 08:35] LABS: SERUM ASSESSMENT Clear
--- NOTE | 2018-10-24 15:01 | CARD ---
[address] [address] CARDIAC CATH REPORT Name: GEORGEJIMI W [id number] Admission: 10/24/18 Attend Phys: Wero Ortiz MD, F Discharge: Date of : 71 Report #: [id number] THIS REPORT FOR: //name// APPROVED REPORT Study performed: 10/24/2018 08:00:38 Patient Details Patient Status: Out-Patient Room #: The patient is a 43 year-old male Event Personnel Wero Ortiz Senior Strategy Manager, Sridevi Garcia RN RN, Christopher Berumen (Saqib) Grazyna Moreno James Monitor Procedures Performed left heart cath Indication Atrial fibrillation, Dyspnea, CardiomyopathyPositive stress test Risk Factors Obesity Admission/Lab Medications/Medications given during procedure Heparin Unfract. Procedure Narrative The patient was brought electively to the Cardiac Catheterization Laboratory and was prepped and draped in a sterile manner. The right wrist was infiltrated with 1% Lidocaine subcutaneous anesthesia. A Slender Glidesheath sheath was inserted into the right radial artery. Coronary angiography was performed using coronary diagnostic catheters. The right coronary system was accessed and visualized with a Diagnostic - JR4 catheter. The left coronary system was accessed and visualized with a Diagnostic - JL4 catheter. The left ventricle was accessed and visualized with a Diagnostic - ANG PIG catheter. Left ventricular/Aortic Valve gradient assessed via catheter pullback. Left ventriculogram was performed in WILLIS projection. Closure device was deployed with a 6 Fr Vasc-Band XLng 29cm. The patient tolerated the procedure well and there were no complications associated with the procedure. There was no hematoma[place] [address] CARDIAC CATH REPORT Name: JIMI VAZQUEZ Room: [facility]#: [id number] Admission: 10/24/18 Attend Phys: Wero Ortiz MD, F Discharge: Date of : 71 Report #: [id number] Sedation start time: 926 Case end Time: 944 Fentanyl 25 mcg Versed 2 mg Fluoro Time: 2.9 minutes Dose: DAP 56887 cGycm2 1161 mGy Contrast Type and Amount: Omnipaque 290 ml Coronary Angiography The patient's coronary anatomy is right dominant. [place] Artery Percent Stenosis Left Main: 0 % Prox LAD: 0 % Mid/Distal LAD: 30 % Circumflex: 0 % RCA: 30 % Ramus: 40 % Diagnostic Cath Diagonal 1 40% proximal stenosis noted Left Ventriculography The left ventricle is mild to moderately dilated in size with decreased contractility. The left ventricular ejection fraction is estimated to be 25-30%. There is no mitral insufficiency. Hemodynamics The aortic pressure is 107/74 mmHg with a mean of 86 mmHg. The left ventricular pressure is 114/20 mmHg with a mean of mmHg. The left ventricular end diastolic pressure is 25 mmHg. There was no gradient across the aortic valve upon pullback. Pullback from the left ventricle to the aorta revealed no gradient across the aortic valve. Conclusion 1. nonischemic cardiomyopathy Recommendations consider ICD implantation <ELECTRONICALLY SIGNED> By: Wero Ortiz MD, FACC 10/24/18 1500 1500 1500Daviyahir Ortiz MD, FACC /INF
--- NOTE | 2018-10-24 16:29 | EKG ---
[place] [address] ELECTROCARDIOGRAM REPORT Name: JIMI VAZQUEZ Room: [facility]#: [id number] Admission: 10/24/18 Attend Phys: Wero Ortiz MD, F Discharge: Date of : 71 Report #: [id number] THIS REPORT FOR: //name// [facility] Test Date: 2018-10-24 Test Time: 08:58:46 Pat Name: JIMI VAZQUEZ Department: Room: Gender: M Shoulder Puncher: : 1975 Requested By: Wero Ortiz Order Number: [id number] Eric MD: Wero Ortiz Measurements Intervals [place] Rate: 100 P: [place]: QRS: -77 QRSD: 112 T: 148 QT: 299 QTc: 386 Interpretive Statements Atrial fibrillation Borderline IVCD with LAD Abnormal R-wave progression, late transition Inferior infarct, old Lateral leads are also involved Baseline wander in lead(s) V1,V2 Compared to ECG 05/30/2018 15:03:08 no change Electronically Signed On 10-24-2018 16:29:11 LABOR ECONOMIST by Wero Ortzi [email or web address] <ELECTRONICALLY SIGNED> By: Wero Ortiz MD, [facility] 10/24/18 1629 0858 0858 Wero Ortiz MD, [facility] /EPI
== END | disposition home or self-care (01) ==
LOC: M.CL 07:32
PROVIDERS: Internal Medicine Cardiovascular Disease
DX: I48.1 Persistent atrial fibrillation (principal); I42.9 Cardiomyopathy, unspecified; R94.39 Abnormal result of other cardiovascular function study; I25.5 Ischemic cardiomyopathy; G47.30 Sleep apnea, unspecified; F41.9 Anxiety disorder, unspecified; E78.5 Hyperlipidemia, unspecified; I50.22 Chronic systolic (congestive) heart failure; E66.01 Morbid (severe) obesity due to excess calories; Z79.899 Other long term (current) drug therapy; Z98.890 Other specified postprocedural states